=== PATIENT | female | born 1995 | race Hispanic/Latino ===

== ENCOUNTER 2021-03-08 19:44 | Emergency (ER) | payer SELFPAY ==
[~2021-03-08] VITALS: Ht 152.4 cm; Wt 62.6 kg
[2021-03-08 20:30] LABS: APPEARANCE,URINE Clear (CLEAR); BILIRUBIN,URINE Negative (NEGATIVE); COLOR,URINE Yellow (YELLOW); GLUCOSE, URINE (UA) Negative (NEGATIVE); KETONES,URINE >=160 mg/dL (NEGATIVE); LEUKOCYTE ESTERASE ,URINE Negative (NEGATIVE); NITRATE,URINE Negative (NEGATIVE); OCCULT BLOOD,URINE Negative (NEGATIVE); PH,URINE 5.5 (5.0-8.0); PROTEIN,URINE POS 1+ mg/dL (NEGATIVE)
[2021-03-08] MEDS ORDERED: IBUPROFEN 600 MG TABLET PO ONE (20:30)
[2021-03-08] MEDS ORDERED: ACETAMINOPHEN 500 MG TABLET PO ONE (20:30)
[2021-03-08] MEDS ORDERED: 0.9%NACL 1000ML 1,000 ML IV ONE (20:30)
[2021-03-08 20:34] LABS: HCG,QUAL RESULT NEGATIVE (NEGATIVE)
[2021-03-08 20:38] LABS: BACTERIA,URINE Few /HPF (None Seen); MUCUS,URINE Few LPF (None Seen); RBC,URINE 0-1 /HPF (0-1); SQUAMOUS EPITHELIAL CELL,UR Moderate /HPF (0-2)
[2021-03-08 20:48] LABS: BASOPHILS % (AUTO) 0.2 % (0.0-5.0); HEMATOCRIT 40.1 % (36-48); LYMPHOCYTES % (AUTO) 16.3 % (21.0-51.0); MEAN CORPUSCULAR HEMOGLOBIN 29.4 pg (27.0-33.0); MEAN CORPUSCULAR HGB CONC 33.4 g/dL (32.0-36.0); MEAN CORPUSCULAR VOLUME 87.9 fL (79-99); MONOCYTES % (AUTO) 6.5 % (3.0-13.0); NEUTROPHILS % (AUTO) 76.8 % (40.0-77.0); PLATELET COUNT (AUTO) 193 K/uL (130-400); RED BLOOD CELL COUNT(AUTO) 4.56 MIL/uL (4.00-5.50); RED CELL DISTRIBUTION WIDTH 12.2 % (11.0-15.5); WHITE BLOOD COUNT (AUTO) 5.4 K/uL (4.8-10.8)
[2021-03-08] MEDS ORDERED: AZITHROMYCIN 250 MG TABLET PO ONE (21:00)
[2021-03-08] MEDS ORDERED: CEFTRIAXONE 1G VIAL IVP ONE (21:00)
[2021-03-08 21:15] LABS: B-TYPE NATRIURETIC PEPTIDE < 5 pg/mL (0-100)
[2021-03-08 21:20] LABS: ALBUMIN 3.7 g/dL (3.5-5.0); BILIRUBIN,TOTAL 0.4 mg/dL (0.2-1.0); CREATININE 0.4 mg/dL (0.5-1.5); CRP QUANTITATIVE 101.1 mg/L (0.00-9.0); POTASSIUM 4.4 mmol/L (3.5-5.1); TOTAL PROTEIN, SERUM 7.8 g/dL (6.0-8.3)
[2021-03-08] MEDS ORDERED: IVER3TAB PO (22:42)
[2021-03-08] MEDS ORDERED: AZIT500T PO (22:42)
[2021-03-08] MEDS ORDERED: ACET-2247 PO (22:42)
[2021-03-08] MEDS ORDERED: ALBUHFA IH (22:42)
[2021-03-08] MEDS ORDERED: PRED20TA3 PO (22:42)
[2021-03-08] MEDS ORDERED: CEPH500B PO (22:45)
[2021-03-08 23:06] VITALS: BP 122/72
== END 2021-03-08 23:17 | disposition home or self-care (01) ==
LOC: EDH 19:44
DX: U07.1 COVID-19 (principal); J12.82 Pneumonia due to coronavirus disease 2019; N39.0 Urinary tract infection, site not specified; Z79.1 Long term (current) use of non-steroidal anti-inflammatories (NSAID); Z79.52 Long term (current) use of systemic steroids; Z79.899 Other long term (current) drug therapy
CPT/HCPCS: 36415; 71045; 80053; 81001; 81025; 83880; 85025; 86140; 87040 ×2; 87635; 87804 ×2; 87880; 96361; 96374; 99284; C9803; J0696; J7030